=== PATIENT | male | born 1935 | race Caucasian/White ===

== ENCOUNTER 2017-09-05 08:15 | Emergency (ER) | payer OTHER ==
[~2017-09-05] VITALS: Ht 182.9 cm; Wt 89.4 kg
[2017-09-05] MEDS ORDERED: CARVEDILOL6.25 MG (08:19)
[2017-09-05] MEDS ORDERED: ZOLOFT100 MG PO (08:19)
[2017-09-05] MEDS ORDERED: ADVAIR 250-501 EACH INH (08:20)
[2017-09-05] MEDS ORDERED: XARELTO20 MG PO (08:20)
[2017-09-05] MEDS ORDERED: XALATAN2.5 ML OPHTHALMIC (08:21)
[2017-09-05] MEDS ORDERED: B12INJ IM (08:21)
[2017-09-05] MEDS ORDERED: KEFLEX500 MG PO (10:26)
[2017-09-05] MEDS ORDERED: SALINE NASAL SP30 ML NASAL (10:26)
[2017-09-05 10:47] VITALS: BP 155/71
== END 2017-09-05 11:06 | disposition home or self-care (01) ==
LOC: ER 08:15
DX: R04.0 Epistaxis (principal); S00.11XA Contusion of right eyelid and periocular area, initial encounter; W06.XXXA Fall from bed, initial encounter; Y93.89 Activity, other specified; Y92.89 Other specified places as the place of occurrence of the external cause; Y99.8 Other external cause status

== ENCOUNTER 2017-09-07 01:04 | Emergency (ER) | payer OTHER ==
[~2017-09-07] VITALS: Ht 182.9 cm; Wt 73.9 kg
[~2017-09-07 01:04] MED LIST: ADVAIR 250-501 EACH INH; B12INJ IM; CARVEDILOL6.25 MG; KEFLEX500 MG PO; SALINE NASAL SP30 ML NASAL; XALATAN2.5 ML OPHTHALMIC; XARELTO20 MG PO; ZOLOFT100 MG PO
[2017-09-07 03:59] VITALS: BP 115/57
== END 2017-09-07 03:55 | disposition home or self-care (01) ==
LOC: ER 01:04
DX: S63.501A Unspecified sprain of right wrist, initial encounter (principal); S00.03XA Contusion of scalp, initial encounter; I48.91 Unspecified atrial fibrillation; F03.90 Unspecified dementia, unspecified severity, without behavioral disturbance, psychotic disturbance, mood disturbance, and anxiety; J44.9 Chronic obstructive pulmonary disease, unspecified; F32.9 Major depressive disorder, single episode, unspecified; K21.9 Gastro-esophageal reflux disease without esophagitis; Z95.0 Presence of cardiac pacemaker; W18.30XA Fall on same level, unspecified, initial encounter; Y93.89 Activity, other specified; Y92.89 Other specified places as the place of occurrence of the external cause; Y99.8 Other external cause status